=== PATIENT | male | born 2005 | race Hispanic/Latino ===

== ENCOUNTER 2025-04-05 09:55 | Emergency (ER) | payer SELFPAY ==
[~2025-04-05] VITALS: Ht 180.3 cm; Wt 104.5 kg
--- NOTE | 2025-04-05 10:46 | ERN ---
ED Note History of Present Illness Stated Complaint: HEADACHE, ABD PAIN Chief Complaint: Headache Time Seen by MD: 10:30 Time Seen by Midlevel: 10:33 Dictation: 19-year-old male with no past medical history coming in complaining of a headache for three days, and dysuria. Patient states he has taken Tylenol in the headache returns. Denies any blurry vision, dizziness, any neurological symptoms. Allergies: Coded Allergies: No Known Allergies (Unverified Allergy, Unknown, 04/05/25) Past Medical History Past Medical History: No Pertinent History Surgical History: None Review of System Dictation Constitutional: Negative for fever,chills, and weight loss Eyes: Negative for injury, pain,redness, and discharge ENT: Negative for injury,pain or swelling Cardiovascular: Negative for chest pain, palpitations, and edema Respiratory: Negative for shortness of breath, cough, and wheezing, Abdomen/GI: Negative for abdominal pain, nausea, vomiting, diarrhea, and constipation Back: Negative for injury and pain : Negative for injury, bleeding and discharge MS/Extremity: Negative for injury and deformity Skin: Negative for rash, and discoloration Neuro: Negative for headache, weakness, numbness, tingling, and seizure Psych: Negative for suicide ideation, homicidal ideation, and hallucinations Review of Systems: was completed Initial Vital Sign VS Vital Signs Date Time Temp Pulse Resp B/P (MAP) Pulse Ox O2 Delivery O2 Flow Rate FiO2 04/05/25 09:58 98.4 102 18 126/79 96 Room Air 0 04/05/25 11:23 21 Physical Exam Dictation General: awake, alert, NAD Head/Face: Normocephalic, atraumatic Eyes: PERRL, EOMI, vision at baseline ENT: oral cavity clear, TMs clear, no signs of infection Neck: Trachea midline, supple, no nuchal rigidity Cardiovascular: RRR, normal S1/S2, No MRGs, no JVD Respiratory: CTAB, no respiratory distress, No rales or wheezes Abdomen: Soft, non-tender, non-distended, normal bowel sounds, no guarding or rebound. Skin: Warm, dry, normal turgor, no rash MS/Extremity: Pulses equal, no cyanosis, neurovascular intact, FROM Neuro: COAx4, GCS 15, strength 5/5, CN 2-12 intact, normal cerebellar exam, normal gait, Psych: Normal behavior, mood, and affect normal Results (Laboratory/Radiology) Laboratory/Radiology Laboratory Tests Test 04/05/25 10:20 04/05/25 10:40 Urine Color YELLOW (YELLOW) Urine Appearance CLEAR (CLEAR) Urine pH 5.5 (5.0-8.0) Urine Specific [place] 1.032 (1.001-1.031) Urine Protein 20 mg/dL (NEGATIVE) H Urine Glucose (UA) NEGATIVE mg/dL (NEGATIVE) Urine Ketones NEGATIVE mg/dL (NEGATIVE) Urine Occult Blood SMALL (NEGATIVE) H Urine Nitrate NEGATIVE (NEGATIVE) Urine Bilirubin NEGATIVE mg/dL (NEGATIVE) Urine Urobilinogen 0.2 mg/dL (0.2-1.0) Urine Leukocyte Esterase NEGATIVE Camryn/uL Urine RBC 2-5 /HPF (0-1) H Urine WBC 2-5 /HPF (0-1) H Urine Bacteria None /HPF (None Seen) Influenza Type A Antigen Negative For Type A Influenza Type B Antigen Negative For Type B SARS-CoV-2 Antigen (Rapid) PRESUMPTIVE NEGATIVE Labs Reviewed?: Yes ED Course ED Course Orders Procedure Category Date Status Time Urinalysis Profile LAB 04/05/25 Complete 10:13 Covid19 (Sars Antigen LAB 04/05/25 Complete Rapid) 10:21 Influenza Type A & B, LAB 04/05/25 Complete Rapid 10:21 0.9%Nacl 1000ml (Ns PHA 04/05/25 Complete 1000ml) 10:46 Diphenhydramine Hcl PHA 04/05/25 Complete (Benadryl Inj) 10:46 Ketorolac PHA 04/05/25 Complete Tromethamine 15mg/Ml 10:46 Current Medications Medications (Trade) Dose Ordered Sig/Mireille Route PRN Reason Start Time Stop Time Status Last Admin Dose Admin Diphenhydramine HCl (BENAdryl INJ) 25 mg ONCE STAT IV 04/05/25 10:46 04/05/25 10:49 DC 04/05/25 11:39 Ketorolac Tromethamine (toRADol) 15 mg ONCE STAT IV 04/05/25 10:46 04/05/25 10:49 DC 04/05/25 11:39 Sodium Chloride 1,000 ml @ 100 mls/hr Q10H STAT IV 04/05/25 10:46 04/05/25 12:20 DC 04/05/25 11:39 Vital Signs Date Time Temp Pulse Resp B/P (MAP) Pulse Ox O2 Delivery O2 Flow Rate FiO2 04/05/25 11:23 98.4 102 18 126/79 96 Room Air* 0 21 04/05/25 09:58 98.4 102 18 126/79 96 Room Air 0 Medical Decision Making MDM MDM: 19-year-old male with no past medical history coming in complaining of a headache for three days, and dysuria. Patient states he has taken Tylenol in the headache returns. Denies any blurry vision, dizziness, any neurological symptoms. Swabs are negative. After medication for headache and hydration patient states he feels much better. Discussed with the patient's more than likely this is viral syndrome with tension headaches and needs to follow up with PCP in 1-2 days. Patient verbalized understanding, answered all questions. Differential diagnosis: Viral syndrome, influenza, COVID, tension headache, UTI Rationale: Tests considered and ordered secondary to shared decision making inc lude: Previous outside records reviewed: Old ER visits. Risk of complication and/or morbidity or mortality of patient management: None Medications-Per medication reconciliation Need for hospitalization: Patient does not meet criteria for hospitalization. Need for emergency major/minor surgery: No There are no social concerns with this patient. Prescription drug management Prescriptions will include symptomatic care Patient's prior external medical records from other ER visits were reviewed by me as indicated. Prior testing and results from previous visits were reviewed. Prior tests were taken into account with medical decision making and resource utilization, independent historian/historians were used to obtain complete medical history. I independently interpreted the test that were performed, results were reviewed by me and considered findings on radiology if ordered. Medical management and examination interpretation discussions were had by me with other qualified healthcare professionals as indicated for the patient's care. DX & DISP Disposition: Discharge Departure Impression: Primary Impression: Head ache Condition: Stable Additional Instructions: Take Tylenol or Motrin [id number] for pain control. Follow up with your primary doctor in 1-2 days. Return to the hospital symptoms worsen. Referrals: SELF,REFERRAL (PCP) Time of Disposition: 11:49 I have reviewed the case, and I agree with, Diagnosis and Plan ROBERT REA NP April 05, 2025 10:46 HORACE TAYLOR DO April 05, 2025 12:42
[2025-04-05 10:49] LABS: APPEARANCE,URINE CLEAR (CLEAR); BILIRUBIN,URINE NEGATIVE (NEGATIVE); COLOR,URINE YELLOW (YELLOW); GLUCOSE, URINE (UA) NEGATIVE (NEGATIVE); KETONES,URINE NEGATIVE (NEGATIVE); LEUKOCYTE ESTERASE ,URINE NEGATIVE Leu/uL (NEGATIVE); NITRATE,URINE NEGATIVE (NEGATIVE); OCCULT BLOOD,URINE SMALL (NEGATIVE); PH,URINE 5.5 (5.0-8.0); PROTEIN,URINE 20 mg/dL (NEGATIVE); UROBILINOGEN,URINE 0.2 mg/dL (0.2-1.0)
[2025-04-05 10:53] LABS: ADD UA MICROSCOPIC YES
[2025-04-05 11:11] LABS: MUCUS,URINE MOD LPF (None Seen)
[2025-04-05 11:23] VITALS: BP 126/79; PULSE 102; RESP 18; TEMP 98.4; O2SAT 96
[2025-04-05 11:31] LABS: INFLUENZA TYPE A Negative For Type A (NEGATIVE); INFLUENZA TYPE B Negative For Type B (NEGATIVE)
[2025-04-05 11:36] LABS: COVID19 (SARS ANTIGEN RAPID) PRESUMPTIVE NEGATIVE (NEGATIVE)
[2025-04-05] MEDS: ketOROlac 15MG/ML VIAL (15MG/ML) IV STA (11:39)
[2025-04-05] MEDS: 0.9%NACL 1000ML 1,000 ML IV STA (11:39)
[2025-04-05] MEDS: DiphenhydrAMINE HCL 50 MG/ML VIAL IV STA (11:39)
== END 2025-04-05 12:20 | disposition home or self-care (01) ==
LOC: EDH 09:55
DX: R51.9 Headache, unspecified (principal); Z20.822 Contact with and (suspected) exposure to COVID-19
CPT/HCPCS: 99284; 96374; 96375; 87426; 87804 ×2; 81001; J1885; J1200; J7030